=== PATIENT | male | born 1990 | race Caucasian/White ===

== ENCOUNTER 2017-04-16 10:08 | Emergency (ER) | payer OTHER ==
[~2017-04-16] VITALS: Ht 182.9 cm; Wt 82.1 kg
[2017-04-16 10:10] VITALS: BP 135/77
[2017-04-16] MEDS ORDERED: ASPI-650 PO (10:22)
[2017-04-16] MEDS ORDERED: DEXAMETHASONE 4 MG/ML, 1ML PO ONE (11:00)
[2017-04-16] MEDS ORDERED: KETOROLAC 30 MG/1 ML IM ONE (11:00)
[2017-04-16] MEDS ORDERED: DEXAMETHASONE 4 MG TABLET ONE (11:04)
[2017-04-16] MEDS ORDERED: KETOROLAC 30 MG/1 ML ONE (11:05)
== END 2017-04-16 11:40 | disposition home or self-care (01) ==
LOC: ED 11:15
DX: J02.0 Streptococcal pharyngitis (principal)
CPT/HCPCS: 96372; 99283; J1100; J1885